=== PATIENT | female | born 1955 | race Caucasian/White ===

== ENCOUNTER 2017-08-21 09:19 | Observation (INO) | payer OTHER ==
[2017-08-21] VITALS (20 sets, daily range): BP systolic 124–175; BP diastolic 62–91; PULSE 76–112; RESP 12–20; Ht 152.4 cm; Wt 94.5 kg
[~2017-08-21] VITALS: Ht 152.4 cm; Wt 94.5 kg
[~2017-08-21 09:19] MED LIST: CEFAZOLIN 2 GM/50 ML (PMX) 50 ML IVPB ONE; LOSA25TA2 PO; SOD CHLORIDE 0.9% 1,000 ML IV ONE
--- NOTE | 2017-08-21 10:23 | RADRPT ---
PROCEDURE: XR Chest AP portable CLINICAL INDICATION: Mastectomy TECHNIQUE: An AP portable radiograph of the chest was submitted. COMPARISON: None. FINDINGS: Support Hardware: None Cardiovascular: The cardiovascular silhouette appears unremarkable. Lung Garrison: The lung garrison appear clear with no nodule, alveolar infiltrate, or interstitial promi nence evident. Pleural Spaces: No pneumothorax or pleural effusion is identified. Osseous Structures: The osseous structures appear intact. Soft Tissues: The soft tissues appear generous. IMPRESSION: Unremarkable portable chest. Physician Denise Date Time Electronically viewed and signed by Rosi Chung Physician on 08/21/2017 10:23 /
[2017-08-21 10:35] LABS: BASOPHIL # 0.1 10^3/ul (0.0-0.1); BASOPHILS % 0.7 % (0.0-2.0); EOSINOPHILS # 0.2 10^3/ul (0.0-0.5); EOSINOPHILS % 2.5 % (0.0-7.0); HEMATOCRIT 41.8 % (37.0-47.0); HEMOGLOBIN 14.1 g/dl (12.0-16.0); LYMPHOCYTES # 1.8 10^3/ul (0.8-2.9); LYMPHOCYTES % 25.1 % (15.0-51.0); MEAN CORPUSCULAR HEMOGLOBIN 31.7 pg (29.0-33.0); MEAN CORPUSCULAR HGB CONC 33.7 g/dl (32.0-37.0); MEAN CORPUSCULAR VOLUME 93.9 fl (82.0-101.0); MEAN PLATELET VOLUME 10.4 fl (7.4-10.4); MONOCYTE # 0.6 10^3/ul (0.3-0.9); MONOCYTES % 7.5 % (0.0-11.0); NEUTROPHIL # 4.7 10^3/ul (1.6-7.5); NEUTROPHILS % 63.9 % (39.0-77.0); PLATELET COUNT 316 10^3/UL (140-415); RED BLOOD COUNT 4.45 10^6/ul (4.20-5.40); WHITE BLOOD COUNT 7.3 10^3/ul (4.8-10.8)
[2017-08-21 10:55] LABS: INR 0.96; PARTIAL THROMBOPLASTIN TIME 29.7 Sec (25.0-35.0); PROTIME 12.8 Sec (12.2-14.2)
[2017-08-21 10:58] LABS: ALBUMIN 4.4 g/dl (3.3-4.9); ALBUMIN/GLOBULIN RATIO 1.15; BILIRUBIN,INDIRECT 0.5 mg/dl (0-1.1); BILIRUBIN,TOTAL 0.5 mg/dl (0.2-1.3); TOTAL PROTEIN 8.2 g/dl (6.1-8.1)
[2017-08-21 11:04] LABS: CALCIUM 9.6 mg/dl (8.4-10.2); CREATININE 0.64 mg/dl (0.44-1.00); POTASSIUM 3.6 mmol/L (3.5-5.1)
[2017-08-21] MEDS ORDERED: ISOSULFAN BLUE 1% 5 ML INJ SC ONE (12:23)
[2017-08-21] MEDS ORDERED: LIDOCAINE 2% (SDV) 5 ML INJ ONE (12:29)
[2017-08-21] MEDS ORDERED: FENTAnyl 50 MCG/ML VIAL IV PRN ×3 (12:30)
[2017-08-21] MEDS ORDERED: EPHEDrine SULFATE 50 MG/5 ML SYG IV PRN (12:30)
[2017-08-21] MEDS ORDERED: OXYCODONE/ACETAMINOPHEN (5/325) TAB PO PRN ×2 (12:30)
[2017-08-21] MEDS ORDERED: DIPHENHYDRAMINE 50 MG INJ IV PRN (12:30)
[2017-08-21] MEDS ORDERED: hydrALAzine 20 MG INJ IV PRN ×2 (12:30→19:00)
[2017-08-21] MEDS ORDERED: LABETALOL HCL 20MG INJ IV PRN (12:30)
[2017-08-21] MEDS ORDERED: MEPERIDINE 25 MG INJ IV PRN (12:30)
[2017-08-21] MEDS ORDERED: MIDAZOLAM 1 MG/ML 2 ML INJ IV PRN (12:30)
[2017-08-21] MEDS ORDERED: METOCLOPRAMIDE 10 MG INJ IV PRN (12:30)
[2017-08-21] MEDS ORDERED: ONDANSETRON 4 MG INJ IV PRN ×2 (12:30→14:30)
[2017-08-21] MEDS ORDERED: PROPOFOL 20 ML ONE (12:30)
[2017-08-21] MEDS ORDERED: HYDROmorphONE (0.2 MG/ML) 10ML SYG IV PRN ×3 (12:30)
[2017-08-21] MEDS ORDERED: MEPERIDINE 100 MG INJ ONE (12:31)
[2017-08-21] MEDS ORDERED: METOCLOPRAMIDE 10 MG INJ ONE (12:32)
[2017-08-21] MEDS ORDERED: ONDANSETRON 4 MG INJ ONE (12:32)
[2017-08-21] MEDS ORDERED: CEFAZOLIN 1 GM INJ ONE (12:32)
--- NOTE | 2017-08-21 14:05 | SIPON ---
Date/Time of Note Date/Time of Note DATE: 08/21/17 TIME: 14:03 Operative Report Preoperative Diagnosis Invasive cancer left breast Postoperative Diagnosis Same Operation/Procedure Performed Left partial mastectomy and axillary dissection utilizing sentinel lymph node technique Surgeon see signature line assistant administrator Dr Vieyra Second assist: ANABELL LINDSEY MD Anesthesia: general Estimated blood loss: 10 - 50 ml's Transfusion Required none Specimen Left breast specimen and sentinel lymph node with additional axillary lymph nodes Grafts/Implants none Complications none CHECO PIÑA MD Aug 21, 2017 14:05
[2017-08-21] MEDS ORDERED: morphine 2 MG INJ IV PRN (14:30)
[2017-08-21] MEDS ORDERED: ACETAMINOPHEN 1000MG/100ML IV 100 ML IVPB PRN (14:30)
[2017-08-21] MEDS: D5W-0.45 NACL + KCL 20 MEQ 1,000 ML IV SCH ×3 (14:47→23:13)
--- NOTE | 2017-08-21 15:45 | OPR ---
DATE OF OPERATION: 08/21/2017 PREOPERATIVE DIAGNOSIS: Invasive cancer, left breast. POSTOPERATIVE DIAGNOSIS: Invasive cancer, left breast. PROCEDURE: Left partial mastectomy with axillary dissection utilizing sentinel lymph node technique . ANESTHESIA: General. ANESTHESIOLOGIST: Charlotte Hadley. SURGEON: Marv Sutherland MD ASSISTANTS: Dr. Vieyra and Dr. Alvarez. INDICATIONS FOR PROCEDURE: The patient is an unfortunate 62-year-old female who underwent surveilla nce mammography and was found to have a very suspicious mass in her left breast. Biopsy confirmed i nvasive cancer. She was then seen in surgical consultation. The mass was palpable. The patient wa s counseled as to the possibility of breast conservation surgery with left partial mastectomy and ax illary dissection utilizing sentinel lymph node technique. She consented and was scheduled for surg may. DESCRIPTION OF PROCEDURE: The patient was brought to the operating theater, placed under general an esthesia. The left breast and axillary region was prepped and draped in usual sterile fashion. Rayne roximately 4 mL of 1% Lymphazurin blue dye were then injected peritumorally and the breast was gentl y massaged for approximately 12 minutes. At this point, a 3 cm incision was made in the left axilla ry hairline. Subcutaneous tissue was dissected with cautery down through the clavipectoral fascia. A dye-stained lymphatic was identified and traced to a sentinel lymph node which appeared quite fir m. For this reason, Dr. Sutherland made the decision to resect this node an additional level 1 axillary nodes with blunt dissection along the chest wall. The long thoracic nerve was identified and kept o ut of harm's way. More superiorly, the axillary vein was identified and kept out of harm's way. Th e thoracodorsal neurovascular bundle was identified posterolaterally and kept out of harm's way. Th e sentinel node and some additional axillary lymph nodes were then resected using the LigaSure devic e. Intraoperative frozen section did not reveal definite evidence of metastatic disease in the sent inel node. Therefore, no further nodes were taken and the nodes which were harvested were sent for permanent pathologic analysis. The wound was irrigated. Minimal bleeding was controlled with caute ry. A #10 flat Kishore-Wren drain was then brought through the left mid axillary line, cut to size and laid within the axilla. It was secured in place with 2-0 nylon suture in the standard fashion. The skin incision was then reapproximated with a 4-0 Vicryl suture in subcuticular fashion. Attention was then directed to performing partial mastectomy. The palpable mass which was in the up per outer quadrant was identified. A curvilinear incision was made directly over the mass. Skin ed ges were then elevated with skin hooks and wide circumferential dissection of the breast parenchyma associated with the mass then took place, taking great care to ensure adequate margin. Dissection c ontinued down to the pectoralis major fascia and the mass and the associated breast tissue was then dissected off the fascia utilizing cautery. Specimen was removed, oriented and sent for permanent p athologic analysis. The wound was irrigated. Minimal bleeding was controlled with cautery. Based on the large size of the wound defect, Dr. Sutherland made the decision to bring a drain through the mid axillary line. It was cut to size and laid within the large wound cavity. It was secured in place with 2-0 nylon suture in the standard fashion. The skin was then reapproximated with 4-0 Vicryl sut ures in subcuticular fashion. Benzoin and Steri-Strips were then applied to both wounds. The patie nt tolerated the procedure well. The estimated blood loss was approximately 40 mL. There were no c omplications and the patient was transported in stable condition to the recovery room. Dictated By: MARV CARPIO/SUJATA Conf#: [id number] DID#: [id number]
--- NOTE | 2017-08-21 16:57 | RADRPT ---
Vent Rate: 85 bpm RR Interval: 0 msec HI Interval: 156 msec QRS Duration: 84 msec QT Interval: 380 msec QTC Interval: 452 msec P-R-T [place]: 51 - 38 - 40 degrees Normal sinus rhythm Possible Left atrial enlargement Borderline ECG Electronically Signed By: Yousuf Temple [id number]
[2017-08-21] MEDS ORDERED: HYDROCODONE/APAP (5/325) TAB PO PRN (18:30)
--- NOTE | 2017-08-21 18:37 | HP ---
Date/Time of Note Date/Time of Note DATE: 08/21/17 TIME: 18:29 Assessment/Plan VTE Prophylaxis VTE Prophylaxis Intervention: SCD's Lines/Catheters IV Catheter Type (from Nrsg): Peripheral IV Assessment/Plan Assessment/Plan -Invasive cancer of the left breast, s/p left partial mastectomy with axillary dissection utilizing sentinel lymph node technique by Dr Sutherland. Continue IV Tylenol and [place] as needed for pain. Patient refused IV morphine. Continue Zofran as needed for nausea. -HTN, patient stated that she does not take any medication for hypertension at home, will give hydralazine as needed for systolic blood pressure above 170. -Obesity with BMI of 40 Further recommendations based on clinical course. Plan of care discussed with Dr. Wiggins. HPI/ROS Admit Date/Time Admit Date/Time Aug 21, 2017 at 15:40 Hx of Present Illness The patient is very pleasant 62-year-old female who denies any chronic medical condition except for HTN. Patient underwent surveillance mammography and was found to have mass in her left breast. Sick with biopsy confirmed invasive cancer. She was evaluated by Dr. Sutherland in surgical consultation. Patient was brought to the hospital and underwent left partial mastectomy and axillary dissection utilizing sentinel lymph node technique. Postoperatively patient experienced moderate pain and nausea. Patient is admitted for for further evaluation and management. ROS 12 point review of system is negative unless one mentioned in HPI PMH/Family/Social Past Medical History Medical History: hypertension, other (hernia) Past Surgical History Status post colonoscopy in 2013, status post DIC more than 30 years ago Family History Significant Family History: other (Negative for any history of breast cancer or ovarian cancer) Social History Alcohol Use: occasionally Smoking Status: Never smoker Drug Use: none Exam/Review of Systems Vital Signs Vitals Vital Signs Date Time Temp Pulse Resp B/P Pulse Ox O2 Delivery O2 Flow Rate FiO2 08/21/17 17:30 101 18 164/85 95 Nasal Cannula 2.0 08/21/17 15:45 98.4 Exam Constitutional: alert, oriented Head: normocephalic Neck: supple Respiratory: normal air movement Cardiovascular: nl pulses Gastrointestinal: non-tender, soft Musculoskeletal: nl extremities to inspection Extremities: normal pulses Neurological: MULTINEEDLE SHIRRER II-XII intact Skin: nl turgor Additional Comments Status post left partial mastectomy with clean dry intact dressing and left axillary JPs 2 Labs Result Diagram: 08/21/17 1010 08/21/17 1010 Medications Medications Current Medications Sodium Chloride (NS) 1,000 ml @ 75 mls/hr [id number] ONCE IV ; Start 08/21/17 at 09:00; Stop 08/21/17 at 22:19 Ondansetron HCl 4 mg 4 mg Q6H PRN IV NAUSEA AND/OR VOMITING; Start 08/21/17 at 14:30 Potassium Chloride/Dextrose/ Sod Cl (D5-1/2ns + KCl 20 Meq) 1,000 ml @ 125 mls/ hr Q8H IV Last administered on 08/21/17 14:47; Admin Dose 125 MLS/HR; Start 08/21/17 at 14:05 Morphine Sulfate 2 mg 2 mg Q1H PRN IV PAIN; Start 08/21/17 at 14:30 Acetaminophen (Ofirmev 1000mg/ 100ml Iv) 100 ml @ 400 mls/hr Q6H PRN IVPB PAIN Last administered on 08/21/17 18:14; Admin Dose 400 MLS/HR; Start at 14:30 UMM GANDARA Aug 21, 2017 18:37
[2017-08-22 01:10] VITALS: BP 140/84
[2017-08-22 02:22] VITALS: BP 142/84; RESP 19
[2017-08-22 05:10] VITALS: BP 144/79; PULSE 99
[2017-08-22] MEDS: D5W-0.45 NACL + KCL 20 MEQ 1,000 ML IV SCH ×2 (05:12→07:24)
[2017-08-22 05:19] LABS: BASOPHILS % 0.3 % (0.0-2.0); EOSINOPHILS # 0.2 10^3/ul (0.0-0.5); EOSINOPHILS % 1.5 % (0.0-7.0); HEMATOCRIT 37.7 % (37.0-47.0); LYMPHOCYTES # 2.7 10^3/ul (0.8-2.9); LYMPHOCYTES % 27.6 % (15.0-51.0); MEAN CORPUSCULAR HEMOGLOBIN 30.8 pg (29.0-33.0); MEAN CORPUSCULAR HGB CONC 31.8 g/dl (32.0-37.0); MEAN CORPUSCULAR VOLUME 96.7 fl (82.0-101.0); MEAN PLATELET VOLUME 10.5 fl (7.4-10.4); MONOCYTE # 0.9 10^3/ul (0.3-0.9); MONOCYTES % 8.8 % (0.0-11.0); NEUTROPHIL # 6.1 10^3/ul (1.6-7.5); NEUTROPHILS % 61.5 % (39.0-77.0); PLATELET COUNT 286 10^3/UL (140-415); RED CELL DISTRIBUTION WIDTH 12.4 % (11.5-14.5); WHITE BLOOD COUNT 9.9 10^3/ul (4.8-10.8)
[2017-08-22 06:01] LABS: CALCIUM 8.8 mg/dl (8.4-10.2); CREATININE 0.59 mg/dl (0.44-1.00); POTASSIUM 4.2 mmol/L (3.5-5.1)
[2017-08-22 07:38] VITALS: BP 136/70; RESP 20
[2017-08-22] MEDS ORDERED: ACETAMINOPHEN 325 MG TAB PO PRN (10:00)
--- NOTE | 2017-08-22 12:05 | PDOCDIS ---
Discharge Instructions CONDITION Patient Condition: Stable HOME CARE INSTRUCTIONS: Diet Instructions: Regular ACTIVITY: Activity Restrictions: Slowly Increase Activity Rest between Activity Avoid heavy lifting Do not Drive Do not operate Machinery Do not operate Power Tool Avoid Heavy Housework Bathing Restrictions: Tub Bath FOLLOW UP/APPOINTMENTS Follow-up Plan FU with Primary x 1 week FU with surgery as recommended. Call 911 or go to the nearest hospital if symptoms get worse. Patient and family verbalized understanding dc instructions. Ta Garcia/ staff REENA DE LOS SANTOS Aug 22, 2017 12:05
[2017-08-22] MEDS ORDERED: DOCU-144 PO (12:07)
[2017-08-22] MEDS ORDERED: HYDR-3498 PO (12:07)
[2017-08-22] MEDS ORDERED: PANT40TA3 PO (12:07)
--- NOTE | 2017-08-22 12:10 | DS ---
Date/Time of Note Date/Time of Note DATE: 08/22/17 TIME: 12:10 Discharge Summary Admission/Discharge Info Admit Date/Time Aug 21, 2017 at 14:07 Discharge Date/Time Discharge Diagnosis -Invasive cancer of the left breast, s/p left partial mastectomy with axillary dissection utilizing sentinel lymph node technique by Dr Sutherlnad. -HTN -Obesity with BMI of 40 Patient Condition: Stable Hospital Course The patient is very pleasant 62-year-old female with past history HTN. Patient underwent surveillance mammography mass in her left breast ad biopsy confirmed invasive cancer. Patient was admitted after left partial mastectomy and axillary dissection utilizing sentinel lymph node technique. Postoperatively patient experienced moderate pain and nausea. Patient was admitted for for further evaluation and management. After patient got stable , was discharged in a stable condition. Ta Wiggins /staff Home Meds Active Scripts Amlodipine Besylate* (Amlodipine Besylate*) 2.5 Mg Tablet, 2.5 MG PO DAILY, #30 TAB Prov:REENA DE LOS SANTOS 08/22/17 Pantoprazole* (Protonix*) 40 Mg Tablet., 40 MG PO DAILY, #20 TAB Prov:REENA DE LOS SANTOS 08/22/17 Docusate Sodium* (Colace*) 100 Mg Capsule, 100 MG PO BID, #30 CAP Prov:REENA DE LOS SANTOS 08/22/17 Hydrocodone Bit-Acetaminophen (Hydrocodone Bit-APAP) 5-325MG Tablet, 1 TAB PO Q6 Y for PAIN, #10 TAB Prov:REENA DE LOS SANTOS 08/22/17 Follow-up Plan FU with Primary x 1 week FU with surgery as recommended. Call 911 or go to the nearest hospital if symptoms get worse. Patient and family verbalized understanding dc instructions. Ta Garcia/ staff Primary Care Provider Not On Staff Doctor Time spent on discharge: < 30 minutes Pending Labs Laboratory Tests Test 08/22/17 04:52 White Blood Count 9.910^3/ul (4.8-10.8) Red Blood Count 3.9010^6/ul (4.20-5.40) Hemoglobin 12.0g/dl (12.0-16.0) Hematocrit 37.7% (37.0-47.0) Mean Corpuscular Volume 96.7fl (82.0-101.0) Mean Corpuscular Hemoglobin 30.8pg (29.0-33.0) Mean Corpuscular Hemoglobin Concent 31.8g/dl (32.0-37.0) Red Cell Distribution Width 12.4% (11.5-14.5) Platelet Count 62741^3/UL (140-415) Mean Platelet Volume 10.5fl (7.4-10.4) Neutrophils % 61.5% (39.0-77.0) Lymphocytes % 27.6% (15.0-51.0) Monocytes % 8.8% (0.0-11.0) Eosinophils % 1.5% (0.0-7.0) Basophils % 0.3% (0.0-2.0) Nucleated Red Blood Cells % 0.0/100WBC (0.0-0.0) Neutrophils # 6.110^3/ul (1.6-7.5) Lymphocytes # 2.710^3/ul (0.8-2.9) Monocytes # 0.910^3/ul (0.3-0.9) Eosinophils # 0.210^3/ul (0.0-0.5) Basophils # 0.010^3/ul (0.0-0.1) Nucleated Red Blood Cells # 0.010^3/ul (0.0-0.0) Sodium Level 140mmol/L (135-144) Potassium Level 4.2mmol/L (3.5-5.1) Chloride Level 108mmol/L (97-110) Carbon Dioxide Level 26mmol/L (21-31) Anion Gap 10 (8-16) Blood Urea Nitrogen 5mg/dl (7-20) Creatinine 0.59mg/dl (0.44-1.00) Glucose Level 110mg/dl (70-220) Calcium Level 8.8mg/dl (8.4-10.2) REENA DE LOS SANTOS Aug 22, 2017 12:10
[2017-08-22] MEDS ORDERED: AMLO2.5T78 PO (12:35)
--- NOTE | 2017-08-23 02:50 | PN ---
DATE: 08/22/2017 CHIEF COMPLAINT: Status post left breast partial mastectomy with axillary resection. SUBJECTIVE: No complaint, feels good, has been walking around. Tolerated diet. OBJECTIVE: GENERAL: Alert, awake, oriented x3. VITAL SIGNS: Temperature 98.4, heart rate 70 (regular), respirations 20, blood pressure 136/72, saturation 98% on room air. LABORATORIES: Within normal limits. Dressing is intact, but not too tight. Kishore-Wren drains have drained 30 and 20 mL respectively since date of operation, which was yesterday , till 6:00 morning, is serosanguineous in color. ASSESSMENT: A 62-year-old female with cancer of the left breast that is status post left partial mastectomy with axillary dissection, has been stable since operation. The patient can be discharged home today with two Kishore-Wren drains. The care of the Kishore-Wren drain was taught to the patient's son who was at the bedside. The patient's family needs to call Dr. Sutherland's office on Thursday and make an appointment for followup. Dictated By: MARCELO ISLAS/SUJATA Conf#: [id number] DID#: [id number]
== END 2017-08-22 13:15 | disposition home or self-care (01) ==
LOC: SDS 09:19 → REC 14:07 → MS1 15:35 → UNDOADMOB 15:40 → REC 15:40 → MS1 16:00
PROVIDERS: ADMIT Surgery Surgical Oncology; ATTEND Surgery Surgical Oncology
DX: C50.412 Malignant neoplasm of upper-outer quadrant of left female breast (principal); Z17.1 Estrogen receptor negative status [ER-]; I10 Essential (primary) hypertension; E66.01 Morbid (severe) obesity due to excess calories; Z68.41 Body mass index [BMI] 40.0-44.9, adult
CPT/HCPCS: 19301; 38525; 38900; 71010; 80048; 80053; 85025; 85610; 85730; 88307; 88331; 88342; 93005; 96360; 96361; 96365; J0131; J0690; J2175; J2405; J2765; J3480; Z7500; Z7512; Z7610; G0378; Q9968